=== PATIENT | female | born 1980 | race Two or more races ===

== ENCOUNTER 2017-02-05 09:49 | Outpatient (CLI) | payer BC, MEDICAID | END 2017-02-05 09:50 | disposition critical access hospital (66) | DX: J70.5 Respiratory conditions due to smoke inhalation (principal) | CPT/HCPCS: A0425; A0429 ==

== ENCOUNTER 2017-02-05 10:03 | Emergency (ER) | payer BC, MEDICAID ==
[2017-02-05] MEDS ORDERED: LORazepam 2 MG/ML SYRINGE ONE (10:11)
[2017-02-05] MEDS ORDERED: LORazepam 2 MG/ML SYRINGE IM STA (10:16)
== END 2017-02-05 13:50 | disposition home or self-care (01) ==
DX: J70.5 Respiratory conditions due to smoke inhalation (principal); T59.811A Toxic effect of smoke, accidental (unintentional), initial encounter; X00.1XXA Exposure to smoke in uncontrolled fire in building or structure, initial encounter; Y93.89 Activity, other specified; Y92.000 Kitchen of unspecified non-institutional (private) residence as the place of occurrence of the external cause; Y99.8 Other external cause status; F17.200 Nicotine dependence, unspecified, uncomplicated
CPT/HCPCS: 36415; 80053; 82375; 83690; 85025; 96372; 99283; J2060

== ENCOUNTER 2017-02-06 21:18 | Outpatient (CLI) | payer MEDICAID | END 2017-02-06 21:19 | disposition critical access hospital (66) | DX: R45.89 Other symptoms and signs involving emotional state (principal) | CPT/HCPCS: A0425; A0429 ==

== ENCOUNTER 2017-02-06 21:34 | Emergency (ER) | payer MEDICAID ==
[2017-02-06] MEDS ORDERED: LORazepam 0.5 MG TABLET PO STA (23:15)
[2017-02-06] MEDS ORDERED: LORazepam 0.5 MG TABLET ONE (23:18)
[2017-02-07] MEDS ORDERED: LORazepam 0.5 MG TABLET PO STA (09:43)
[2017-02-07] MEDS ORDERED: LORazepam 0.5 MG TABLET ONE (09:43)
== END 2017-02-07 09:50 | disposition home or self-care (01) ==
DX: F10.230 Alcohol dependence with withdrawal, uncomplicated (principal); R06.4 Hyperventilation; F41.9 Anxiety disorder, unspecified; R53.1 Weakness; F17.200 Nicotine dependence, unspecified, uncomplicated
CPT/HCPCS: 99283; A9270